=== PATIENT | male | born 1970 | race Caucasian/White ===

== ENCOUNTER 2021-03-14 12:42 | Inpatient (IN) | payer OTHER ==
[2021-03-14 13:33] VITALS: BMI 21.2
[2021-03-14] MEDS ORDERED: chlordiazePOXIDE HCL 25 MG CAPSULE PO PRN (15:08)
[2021-03-14] MEDS ORDERED: MAGNESIUM CITRATE 300 ML BOTTLE PO PRN (15:08)
[2021-03-14] MEDS ORDERED: ONDANSETRON *ODT* 4 MG TABLET SL PRN (15:08)
[2021-03-14] MEDS ORDERED: MAG HYDROX/AL HYDROX/SIMETH 30 ML UNIT-DOSE CUP PO PRN (15:08)
[2021-03-14] MEDS ORDERED: BISMUTH SUBSALICYLATE 524 MG/30 ML PO PRN (15:08)
[2021-03-14] MEDS ORDERED: NICOTINE 10 MG CARTRIDGE (INHALER) IH PRN (15:08)
[2021-03-14] MEDS ORDERED: MENTHOL/PHENOL 1 EACH UD MM PRN (15:08)
[2021-03-14] MEDS ORDERED: MAGNESIUM HYDROX 2400MG/30ML ORAL SUSPENSION 30 ML CUP PO PRN (15:08)
[2021-03-14] MEDS ORDERED: IBUPROFEN 400 MG TABLET (FP) PO PRN (15:08)
[2021-03-14] MEDS ORDERED: METHOCARBAMOL 500 MG TABLET PO PRN (15:08)
[2021-03-14] MEDS ORDERED: ACETAMINOPHEN 325 MG TABLET (FP) PO PRN ×2 (15:08)
[2021-03-14] MEDS ORDERED: PATIENT'S OWN MEDICATION (NON-FORMULARY) (Ipratropium Bromide [Atrovent Hfa] 12.9 GM Hfa.A IH SCH (22:00)
[2021-03-14] MEDS ORDERED: PATIENT'S OWN MEDICATION (NON-FORMULARY) (Buprenorphine/Naloxone 1 EACH Film) SL SCH (22:00)
[2021-03-14] MEDS: AMOX TR/POT CLAV 875MG/125MG TABLETS (FP) PO SCH (23:37)
[2021-03-14] MEDS: chlordiazePOXIDE HCL 25 MG CAPSULE PO SCH (23:37)
[2021-03-14] MEDS: hydrOXYzine PAMOATE 25 MG CAPSULE (FP) PO SCH (23:37)
[2021-03-14] MEDS: THIAMINE HCL 100 MG TABLET (FP) PO SCH (23:40)
[2021-03-14] MEDS: BUPRENORPHINE/NALOXONE 8 MG/2 MG FILM PACKET SL SCH (23:40)
[2021-03-14] MEDS: BUDESONIDE/FORMETEROL FUMARATE 80/4.5 mcg INHALER IH SCH (23:40)
[2021-03-14] MEDS: MELATONIN 5 MG TABLETS PO SCH (23:41)
[2021-03-14] MEDS: ALBUTEROL SO4 HFA INHALER IH SCH (23:44)
[2021-03-15] MEDS: chlordiazePOXIDE HCL 25 MG CAPSULE PO SCH ×5 (00:12→22:08)
[2021-03-15] MEDS: hydrOXYzine PAMOATE 25 MG CAPSULE (FP) PO SCH ×6 (00:12→22:08)
[2021-03-15] MEDS: METOPROLOL TARTRATE 50 MG TABLET (FP) PO SCH ×2 (00:12→10:42)
[2021-03-15] MEDS: AMOX TR/POT CLAV 875MG/125MG TABLETS (FP) PO SCH ×2 (07:44→18:18)
[2021-03-15 09:24] LABS: ALBUMIN 2.9 g/dl (3.4-5.0); BLOOD UREA NITROGEN 7.5 mg/dL (7-18); CALCIUM 8.8 mg/dL (8.5-10.1)
[2021-03-15 09:26] LABS: HEMATOCRIT 39.3 % (35.4-49); MCHC 33.2 g/dl (32.0-35.9); MEAN CELL VOLUME 102.5 fl (80-96); MEAN PLT VOLUME 10.1 fl (7.5-11.1); PLATELET COUNT 201 10^3/uL (134-434); RBC 3.84 M/mm3 (4.00-5.60); RDW 13.8 % (11.9-15.9)
[2021-03-15 09:27] LABS: CREATININE 0.8 mg/dL (0.55-1.3)
[2021-03-15 09:29] LABS: BILIRUBIN,TOTAL 1.6 mg/dL (0.2-1); TOT PROT 6.5 g/dl (6.4-8.2)
[2021-03-15] MEDS ORDERED: ASPIRIN COATED 81 MG TABLET.EC PO SCH ×2 (10:00)
[2021-03-15 10:22] LABS: HIV INTERPRETATION NEGATIVE (NEGATIVE)
[2021-03-15] MEDS: PRENATAL VITAMINS W/ FOLIC ACID TABLET (FP) PO SCH (10:42)
[2021-03-15] MEDS: BUPRENORPHINE/NALOXONE 8 MG/2 MG FILM PACKET SL SCH ×2 (10:42→22:08)
[2021-03-15] MEDS: BUDESONIDE/FORMETEROL FUMARATE 80/4.5 mcg INHALER IH SCH ×2 (10:43→22:07)
[2021-03-15] MEDS: ALBUTEROL SO4 HFA INHALER IH SCH ×2 (10:46→22:09)
[2021-03-15] MEDS: THIAMINE HCL 100 MG TABLET (FP) PO SCH (22:08)
[2021-03-15] MEDS: MELATONIN 5 MG TABLETS PO SCH (22:08)
[2021-03-16] MEDS: chlordiazePOXIDE HCL 25 MG CAPSULE PO SCH ×4 (06:09→22:00)
[2021-03-16] MEDS: hydrOXYzine PAMOATE 25 MG CAPSULE (FP) PO SCH ×5 (06:09→21:57)
[2021-03-16] MEDS: ASPIRIN 325 MG ENTERIC COATED TABLET (FP) PO SCH (10:26)
[2021-03-16] MEDS: BUPRENORPHINE/NALOXONE 8 MG/2 MG FILM PACKET SL SCH ×2 (10:26→21:57)
[2021-03-16] MEDS: PRENATAL VITAMINS W/ FOLIC ACID TABLET (FP) PO SCH (10:26)
[2021-03-16] MEDS: BUDESONIDE/FORMETEROL FUMARATE 80/4.5 mcg INHALER IH SCH ×2 (10:27→21:56)
[2021-03-16] MEDS: METOPROLOL TARTRATE 50 MG TABLET (FP) PO SCH (10:30)
[2021-03-16] MEDS: ALBUTEROL SO4 HFA INHALER IH SCH ×2 (10:30→21:57)
[2021-03-16] MEDS: AMOX TR/POT CLAV 875MG/125MG TABLETS (FP) PO SCH (18:17)
[2021-03-16] MEDS: MELATONIN 5 MG TABLETS PO SCH (21:57)
[2021-03-16] MEDS: THIAMINE HCL 100 MG TABLET (FP) PO SCH (21:57)
[2021-03-17] MEDS ORDERED: chlordiazePOXIDE HCL 10 MG CAPSULE PO PRN
[2021-03-17] MEDS: AMOX TR/POT CLAV 875MG/125MG TABLETS (FP) PO SCH ×2 (00:23→07:03)
[2021-03-17] MEDS ORDERED: ALBUTEROL SO4 HFA INHALER IH ONE (02:38)
[2021-03-17] MEDS: hydrOXYzine PAMOATE 25 MG CAPSULE (FP) PO SCH ×2 (05:47→10:07)
[2021-03-17] MEDS: chlordiazePOXIDE HCL 10 MG CAPSULE PO SCH ×2 (05:47→10:06)
[2021-03-17 09:03] VITALS: BP 111/58; PULSE 101; TEMP 98.6
[2021-03-17] MEDS: BUPRENORPHINE/NALOXONE 8 MG/2 MG FILM PACKET SL SCH (10:05)
[2021-03-17] MEDS: ASPIRIN 325 MG ENTERIC COATED TABLET (FP) PO SCH (10:06)
[2021-03-17] MEDS: METOPROLOL TARTRATE 50 MG TABLET (FP) PO SCH (10:06)
[2021-03-17] MEDS: PRENATAL VITAMINS W/ FOLIC ACID TABLET (FP) PO SCH (10:07)
[2021-03-17] MEDS: ALBUTEROL SO4 HFA INHALER IH SCH (10:07)
[2021-03-17] MEDS: BUDESONIDE/FORMETEROL FUMARATE 80/4.5 mcg INHALER IH SCH (10:07)
[2021-03-17] MEDS ORDERED: ALBUTEROL SO4 HFA INHALER IH PRN (11:37)
[2021-03-18] MEDS ORDERED: chlordiazePOXIDE HCL 10 MG CAPSULE PO SCH (05:00)
[2021-03-19] MEDS ORDERED: chlordiazePOXIDE HCL 10 MG CAPSULE PO ONE (05:00)
== END 2021-03-17 11:31 | disposition left against medical advice (07) | DRG 770 ==
LOC: YASAS 12:42 → Y3N 22:15
PROVIDERS: ADMIT Allergy & Immunology; ATTEND Allergy & Immunology
PROC: HZ2ZZZZ Detoxification Services for Substance Abuse Treatment (ICD-10-PCS; principal; 2021-03-14)
DX: F10.230 Alcohol dependence with withdrawal, uncomplicated (principal); F11.20 Opioid dependence, uncomplicated; F14.20 Cocaine dependence, uncomplicated; F12.20 Cannabis dependence, uncomplicated; F17.210 Nicotine dependence, cigarettes, uncomplicated; F41.9 Anxiety disorder, unspecified; I10 Essential (primary) hypertension; I48.91 Unspecified atrial fibrillation; J43.9 Emphysema, unspecified; J32.9 Chronic sinusitis, unspecified; M47.817 Spondylosis without myelopathy or radiculopathy, lumbosacral region; Z87.01 Personal history of pneumonia (recurrent); Z79.82 Long term (current) use of aspirin; Z51.81 Encounter for therapeutic drug level monitoring; Z79.899 Other long term (current) drug therapy; Z59.01 Sheltered homelessness
CPT/HCPCS: 36415; 80053; 85027; 86780; 87389; 87529; 93005; 93010; C9803-CS; U0003; U0005

== ENCOUNTER 2021-07-07 13:16 | Inpatient (IN) | payer OTHER ==
[2021-07-07] MEDS ORDERED: BENZOCAINE/MENTHOL (CHLORASEPTIC ) LOZENGE MM PRN (17:58)
[2021-07-07] MEDS ORDERED: ACETAMINOPHEN 325 MG TABLET (FP) PO PRN ×2 (17:58)
[2021-07-07] MEDS ORDERED: LORazepam 1 MG TABLET PO PRN (17:58)
[2021-07-07] MEDS ORDERED: MAGNESIUM HYDROX 2400MG/30ML ORAL SUSPENSION 30 ML CUP PO PRN (17:58)
[2021-07-07] MEDS ORDERED: ONDANSETRON *ODT* 4 MG TABLET SL PRN (17:58)
[2021-07-07] MEDS ORDERED: IBUPROFEN 400 MG TABLET (FP) PO PRN (17:58)
[2021-07-07] MEDS ORDERED: METHOCARBAMOL 500 MG TABLET PO PRN (17:58)
[2021-07-07] MEDS ORDERED: MAG HYDROX/AL HYDROX/SIMETH 30 ML UNIT-DOSE CUP PO PRN (17:58)
[2021-07-07] MEDS ORDERED: NICOTINE 10 MG CARTRIDGE (INHALER) IH PRN (17:58)
[2021-07-07] MEDS ORDERED: MAGNESIUM CITRATE 300 ML BOTTLE PO PRN (17:58)
[2021-07-07] MEDS ORDERED: BISMUTH SUBSALICYLATE 524 MG/30 ML PO PRN (17:58)
[2021-07-07] MEDS ORDERED: NALOXONE HCL (KLOXXADO) 8 MG SPRAY NS PRN (17:58)
[2021-07-07] MEDS ORDERED: DICYCLOMINE HCL 10 MG CAPSULE PO PRN (17:58)
[2021-07-07] MEDS ORDERED: LOPERAMIDE HCL 2 MG CAPSULE PO PRN (17:58)
[2021-07-07] MEDS ORDERED: ASPIRIN 325 MG ENTERIC COATED TABLET (FP) PO SCH (18:15)
[2021-07-07] MEDS: hydrOXYzine PAMOATE 25 MG CAPSULE (FP) PO SCH ×2 (20:45→23:01)
[2021-07-07] MEDS: LORazepam 2 MG TABLET PO SCH ×2 (20:45→23:01)
[2021-07-07] MEDS ORDERED: THIAMINE HCL 100 MG TABLET (FP) PO SCH (22:00)
[2021-07-07] MEDS ORDERED: MELATONIN 5 MG TABLETS PO SCH (22:00)
[2021-07-07] MEDS: BUPRENORPHINE/NALOXONE 8 MG/2 MG FILM PACKET SL SCH (23:02)
[2021-07-07] MEDS: ALBUTEROL SO4 HFA INHALER IH SCH (23:03)
[2021-07-07] MEDS: BUDESONIDE/FORMETEROL FUMARATE 80/4.5 mcg INHALER IH SCH (23:03)
[2021-07-08] MEDS: hydrOXYzine PAMOATE 25 MG CAPSULE (FP) PO SCH ×3 (05:46→13:09)
[2021-07-08] MEDS: LORazepam 2 MG TABLET PO SCH ×2 (05:46→10:33)
[2021-07-08] MEDS ORDERED: TIOTROPIUM BROMIDE 2.5 MCG (SPIRIVA) RESPIMAT INHALER IH SCH (10:00)
[2021-07-08] MEDS ORDERED: PRENATAL VITAMINS W/ FOLIC ACID TABLET (FP) PO SCH (10:00)
[2021-07-08] MEDS ORDERED: ASPIRIN 325 MG ENTERIC COATED TABLET (FP) PO SCH (10:00)
[2021-07-08] MEDS ORDERED: NICOTINE 21 MG/24 HOURS TOPICAL PATCH TD SCH (10:00)
[2021-07-08] MEDS ORDERED: METOPROLOL TARTRATE 50 MG TABLET (FP) PO SCH (10:00)
[2021-07-08] MEDS: BUPRENORPHINE/NALOXONE 8 MG/2 MG FILM PACKET SL SCH (10:32)
[2021-07-08] MEDS: BUDESONIDE/FORMETEROL FUMARATE 80/4.5 mcg INHALER IH SCH (10:34)
[2021-07-08] MEDS: ALBUTEROL SO4 HFA INHALER IH SCH (10:35)
[2021-07-08 15:23] LABS: HEMOGLOBIN 13.9 GM/dL (11.7-16.9); MCHC 33.8 g/dl (32.0-35.9); MEAN CELL VOLUME 100.4 fl (80-96); MEAN PLT VOLUME 9.4 fl (7.5-11.1); PLATELET COUNT 218 10^3/uL (134-434); RBC 4.09 M/mm3 (4.00-5.60); WHITE BLOOD COUNT 4.9 K/mm3 (4.0-10.0)
[2021-07-08 15:38] LABS: CREATININE 0.6 mg/dL (0.55-1.3)
[2021-07-08 15:39] LABS: ALBUMIN 3.4 g/dl (3.4-5.0); BLOOD UREA NITROGEN 8.2 mg/dL (7-18); CALCIUM 8.8 mg/dL (8.5-10.1)
[2021-07-08 15:40] LABS: TOT PROT 7.2 g/dl (6.4-8.2)
[2021-07-08 15:44] LABS: BILIRUBIN,TOTAL 0.5 mg/dL (0.2-1)
[2021-07-08 17:23] VITALS: BP 99/62; PULSE 70; TEMP 97.7
[2021-07-09] MEDS ORDERED: LORazepam 1 MG TABLET PO SCH (05:00)
[2021-07-09 13:07] LABS: SARS-CoV-2 NAA Not Detected (Not Detected)
[2021-07-10] MEDS ORDERED: LORazepam 0.5 MG TABLET PO PRN
[2021-07-10] MEDS ORDERED: LORazepam 0.5 MG TABLET PO SCH (05:00)
[2021-07-11] MEDS ORDERED: LORazepam 0.5 MG TABLET PO ONE (05:00)
== END 2021-07-08 16:40 | disposition left against medical advice (07) | DRG 770 ==
LOC: YASAS 13:16 → Y6N 18:35
PROVIDERS: ADMIT Allergy & Immunology; ATTEND Allergy & Immunology
PROC: HZ2ZZZZ Detoxification Services for Substance Abuse Treatment (ICD-10-PCS; principal; 2021-07-07)
DX: F10.230 Alcohol dependence with withdrawal, uncomplicated (principal); F14.20 Cocaine dependence, uncomplicated; F12.20 Cannabis dependence, uncomplicated; F17.210 Nicotine dependence, cigarettes, uncomplicated; F41.9 Anxiety disorder, unspecified; F43.10 Post-traumatic stress disorder, unspecified; I48.91 Unspecified atrial fibrillation; I10 Essential (primary) hypertension; J43.8 Other emphysema; J45.20 Mild intermittent asthma, uncomplicated
CPT/HCPCS: 36415; 80053; 85027; 86780; 93005; 93010; C9803-CS; U0003; U0005

== ENCOUNTER 2024-09-20 15:11 | Inpatient (IN) | payer OTHER ==
[2024-09-20 16:19] VITALS: RESP 16; BMI 20.4
[2024-09-20] MEDS ORDERED: LOPERAMIDE HCL 2 MG CAPSULE PO PRN (16:49)
[2024-09-20] MEDS ORDERED: MAG HYDROX/AL HYDROX/SIMETH 30 ML UNIT-DOSE CUP PO PRN (16:49)
[2024-09-20] MEDS ORDERED: DICYCLOMINE HCL 10 MG CAPSULE PO PRN (16:49)
[2024-09-20] MEDS ORDERED: ACETAMINOPHEN 325 MG TABLET (FP) PO PRN (16:49)
[2024-09-20] MEDS ORDERED: BENZOCAINE/MENTHOL (CHLORASEPTIC ) LOZENGE MM PRN (16:49)
[2024-09-20] MEDS ORDERED: ONDANSETRON *ODT* 4 MG TABLET SL PRN (16:49)
[2024-09-20] MEDS ORDERED: POLYETHYLENE GLYCOL (HEALTHYLAX) 3350 17 GM PACKET PO PRN (16:49)
[2024-09-20] MEDS ORDERED: BENZONATATE 200 MG CAPSULE PO PRN (16:49)
[2024-09-20] MEDS ORDERED: hydrOXYzine PAMOATE 25 MG CAPSULE (FP) PO PRN (16:49)
[2024-09-20] MEDS ORDERED: NALOXONE (NARCAN) HCL 4 MG/0.1 ML SPRAY NS PRN (16:49)
[2024-09-20] MEDS ORDERED: guaiFENesin 600 MG TABLET.ER (FP) PO PRN (16:49)
[2024-09-20] MEDS ORDERED: MAGNESIUM HYDROX 2400MG/30ML ORAL SUSPENSION 30 ML CUP PO PRN (16:49)
[2024-09-20 21:47] VITALS: BP 140/73; PULSE 89; TEMP 98
[2024-09-20] MEDS ORDERED: ALBUTEROL SO4 HFA INHALER IH PRN (22:00)
[2024-09-20] MEDS: BUPRENORPHINE/NALOXONE 8 MG/2 MG FILM PACKET SL SCH (23:09)
[2024-09-20] MEDS: BUDESONIDE/FORMETEROL FUMARATE 80/4.5 mcg INHALER IH SCH (23:11)
[2024-09-20] MEDS: THIAMINE 100 MG TABLET PO SCH (23:11)
[2024-09-20] MEDS: MELATONIN 5 MG TABLETS PO SCH (23:11)
[2024-09-20] MEDS: METOPROLOL TARTRATE 50 MG TABLET (FP) PO ONE (23:11)
[2024-09-20] MEDS: APIXABAN 5 MG TABLET PO SCH (23:11)
[2024-09-21] MEDS ORDERED: PRENATAL VITAMINS W/ FOLIC ACID TABLET (FP) PO SCH (10:00)
== END 2024-09-21 07:52 | disposition short-term general hospital (02) | DRG 773 ==
LOC: YASAS 15:11 → Y3N 20:59
PROVIDERS: ADMIT Neuromusculoskeletal Medicine & OMM; ATTEND Allergy & Immunology
PROC: HZ2ZZZZ Detoxification Services for Substance Abuse Treatment (ICD-10-PCS; principal; 2024-09-20)
DX: F10.230 Alcohol dependence with withdrawal, uncomplicated (principal); F11.20 Opioid dependence, uncomplicated; F17.210 Nicotine dependence, cigarettes, uncomplicated; F43.10 Post-traumatic stress disorder, unspecified; F41.9 Anxiety disorder, unspecified; G47.00 Insomnia, unspecified; I48.91 Unspecified atrial fibrillation; J44.9 Chronic obstructive pulmonary disease, unspecified; I69.854 Hemiplegia and hemiparesis following other cerebrovascular disease affecting left non-dominant side; Z86.711 Personal history of pulmonary embolism; Z99.89 Dependence on other enabling machines and devices
CPT/HCPCS: 80305; 80307; 93005; 93010